=== PATIENT | male | born 1945 | race Caucasian/White ===

== ENCOUNTER 2021-07-26 09:14 | Day surgery (SDC) | payer MEDICARE, OTHER ==
[2021-07-26 09:56] VITALS: BP 143/80
[2021-07-26 10:09] LABS: BASOPHILS % (AUTO) 1 % (0-1); EOSINOPHILS % (AUTO) 6 % (1-7); LYMPHOCYTES % (AUTO) 20 % (22-44); MEAN CORPUSCULAR HEMOGLOBIN 28.5 pg (27.5-34.5); MEAN CORPUSCULAR HGB CONC 33.1 g/dL (33.2-36.2); MEAN PLATELET VOLUME 6.9 fL (7.4-10.4); MONOCYTES % (AUTO) 10 % (2-9); NEUTROPHILS % (AUTO) 63 % (42-75); PLATELET COUNT 310 x10^3/uL (130-400); RED BLOOD COUNT 3.95 x10^6/uL (4.38-5.82); RED CELL DISTRIBUTION WIDTH 14.9 % (9.4-14.8)
[2021-07-26 10:18] LABS: ANION GAP 9 mmol/L (5-15); CHLORIDE 102 mmol/L (98-107); CREATININE 1.43 mg/dL (0.7-1.3)
[2021-07-26 10:29] LABS: INTERNATIONAL NORMALIZED RATIO 1.11 (0.93-1.1); PROTHROMBIN TIME 11.8 Seconds (9.6-11.5)
[2021-07-26] MEDS ORDERED: PROPOFOL 10 MG/ML, 20ML ONE (11:47)
[2021-07-26] MEDS ORDERED: CEFAZOLIN 1,000 MG ONE (11:47)
[2021-07-26] MEDS ORDERED: DEXAMETHASONE 4 MG/ML, 1ML ONE (11:47)
[2021-07-26] MEDS ORDERED: SUCCINYLCHOLINE 20 MG/ML, 10ML ONE (11:47)
[2021-07-26] MEDS ORDERED: ONDANSETRON 2MG/ML, 2ML ONE (11:47)
[2021-07-26] MEDS ORDERED: MIDAZOLAM 1 MG/ML, 2ML ONE (11:49)
[2021-07-26] MEDS ORDERED: FENTANYL PF 100 MCG/2ML ONE (11:50)
[2021-07-26] MEDS ORDERED: OXYcodone 5 MG/5 ML ORAL.SOL UDC ONE (12:50)
[2021-07-26] MEDS ORDERED: PROMETHAZINE 25 MG/ML, 1ML IV PRN (13:00)
[2021-07-26] MEDS ORDERED: OXYcodone 5 MG/5 ML ORAL.SOL UDC PO PRN (13:00)
[2021-07-26] MEDS ORDERED: HYDROmorphone 1 MG/ML, 1ML INJ IV PRN (13:00)
[2021-07-26] MEDS ORDERED: DIAZEPAM 5 MG/ML, 2ML IV PRN ×2 (13:00)
[2021-07-26] MEDS ORDERED: LABETALOL 5MG/ML, 20ML IV PRN (13:00)
[2021-07-26] MEDS ORDERED: KETOROLAC 30 MG/1 ML IV PRN (13:00)
[2021-07-26] MEDS ORDERED: FENTANYL PF 100 MCG/2ML IV PRN (13:00)
[2021-07-26] MEDS ORDERED: ALBUTEROL SULFATE 2.5 MG/3 ML NPPB PRN (13:00)
[2021-07-26] MEDS ORDERED: MEPERIDINE/PF 25MG/0.5ML IVPush PRN (13:00)
[2021-07-26] MEDS ORDERED: hydrALAzine 20 MG/ML, 1ML IV PRN (13:00)
[2021-07-26] MEDS ORDERED: ONDANSETRON 2MG/ML, 2ML IVPush PRN (13:00)
[2021-07-26 18:23] VITALS: BP 157/84
== END 2021-07-26 18:30 | disposition home or self-care (01) ==
LOC: OR 09:14 → 4NE 09:38 → OR 18:30
PROVIDERS: ATTEND Student in an Organized Health Care Education/Training Program
DX: N02.9 Recurrent and persistent hematuria with unspecified morphologic changes (principal); N40.1 Benign prostatic hyperplasia with lower urinary tract symptoms; R33.8 Other retention of urine; N32.89 Other specified disorders of bladder; Z88.0 Allergy status to penicillin; Z98.890 Other specified postprocedural states; Z20.822 Contact with and (suspected) exposure to COVID-19; Z79.899 Other long term (current) drug therapy
CPT/HCPCS: 36415; 52630; 80048; 85025; 85610; 87635; 88305; 93005; J0330; J0690; J1100; J2250; J2405; J2704; J3010; G0378